=== PATIENT | female | born 1940 | race Caucasian/White ===

== ENCOUNTER 2017-06-24 15:06 | Emergency (ER) | payer MEDICARE, BC ==
[2017-06-24] MEDS ORDERED: Ondansetron HCl/PF 4 MG/2 ML Vial ONE (15:55)
[2017-06-24 16:00] LABS: #Basophils 0.1 thou/uL (0.0-0.2); #Lymphocytes 0.8 thou/uL (1.20-3.40); #Monocytes 0.4 thou/uL (0.11-0.59); #Neutrophils 4.1 thou/uL (1.40-6.50); %Basophils 1.1 % (0.0-1.0); %Eosinophils 0.4 % (0.0-10.0); %Lymphocytes 15.4 % (21.0-51.0); Hematocrit 44.5 % (36.0-47.0); Red Blood Cell (RBC) Count 4.95 mill/uL (4.20-5.40); White Blood Cell (WBC) Count 5.3 thou/uL (4.8-10.8)
[2017-06-24 16:18] LABS: ALT (SGPT) 16 U/L (8-55); AST (SGOT) 18 U/L (5-34); Alkaline Phosphatase 122 U/L (40-150); Anion Gap 16 mmol/L (10-20); BUN (Urea Nitrogen) 9 mg/dL (9.8-20.1); Bilirubin, Total 0.4 mg/dL (0.2-1.2); CK (CPK) 26 U/L (29-168); Calc. Creatinine Clearance 0 mL/min (70-130); Calcium 9.8 mg/dL (7.8-10.44); Carbon Dioxide 28 mmol/L (23-31); Chloride 97 mmol/L (98-107); Estimated GFR-MDRD 63; Globulin 3.4 g/dL (2.4-3.5); Lipase 39 U/L (8-78); Magnesium 1.9 mg/dL (1.6-2.6); Protein, Total 7.4 g/dL (6.0-8.3); Troponin I Less than 0.010 ng/mL (< 0.028)
[2017-06-24 17:29] LABS: Bilirubin Negative (Negative); Blood, Urine Negative (Negative); Glucose, Urine (Dipstick) Negative (Negative); Ketone, Urine Negative (Negative); Nitrite Negative (Negative); Protein, Urine (Dipstick) Negative (Neg-Trace); Urobilinogen 0.2 mg/dL (0.2-1.0)
--- NOTE | 2017-06-24 17:54 | RAD ---
CHEST TWO VIEWS 06/24/17 HISTORY: Weakness. FINDINGS: The cardiac silhouette is upper limits of normal in size. Pulmonary vasculature is unremarkable. Calc ified granulomata are consistent with healed granulomatous disease. Nipple shadows overlie each lung base. Lungs are hyperinflated. There is compression of a lower thoracic vertebral body in the latera l view. Small hiatal hernia is visualized. IMPRESSION: 1. COPD. 2. Atherosclerosis. 3. Partial compression of a lower thoracic vertebral body, age indeterminate. POS: [facility]
--- NOTE | 2017-07-28 12:49 | EKG ---
Test Reason : Blood Pressure : / mmHG Vent. Rate : 072 BPM Atrial Rate : 072 BPM P-R Int : 138 ms QRS Dur : 068 ms QT Int : 398 ms P-R-T Axes : 059 -08 011 degrees QTc Int : 435 ms Normal sinus rhythm Nonspecific ST and T wave abnormality Nospecific ST-T segment abnormalities Abnormal ECG Confirmed by YOGI GIBSON ([id number]), graphic editor SANDRA GONZALES ([id number]) on 07/28/2017 12:48:51 PM Referred By: Confirmed By:YOGI GIBSON
== END 2017-06-24 18:24 | disposition home or self-care (01) ==
LOC: SCSER 15:06
DX: R11.2 Nausea with vomiting, unspecified (principal); R19.7 Diarrhea, unspecified; F41.9 Anxiety disorder, unspecified; F17.290 Nicotine dependence, other tobacco product, uncomplicated; Z79.899 Other long term (current) drug therapy
CPT/HCPCS: 71020; 80053; 81003; 82550; 82553; 83605; 83690; 83735; 84484; 85025; 87086; 93005; 96361; 96374; J2405

== ENCOUNTER 2020-09-30 08:11 | Outpatient (CLI) | payer MEDICARE, BC | END 2020-09-30 08:12 | disposition home or self-care (01) | LOC: PET 08:11 | PROVIDERS: ATTEND Psychiatry & Neurology Neurology | DX: F02.80 Dementia in other diseases classified elsewhere, unspecified severity, without behavioral disturbance, psychotic disturbance, mood disturbance, and anxiety (principal) | CPT/HCPCS: 78803; A9552 ==

== ENCOUNTER 2023-02-19 19:21 | Observation (INO) | payer MEDICARE, BC ==
[2023-02-19] MEDS ORDERED: Nitroglycerin 0.4 MG TAB 1 EACH ONE (19:56)
[2023-02-19 20:34] LABS: #Basophils 0.1 thou/uL (0.0-0.2); #Eosinphils 0.1 thou/uL (0.0-0.7); #Monocytes 0.4 thou/uL (0.11-0.59); #Neutrophils 3.2 thou/uL (1.40-6.50); %Basophils 1.4 % (0.0-1.0); %Eosinophils 1.8 % (0.0-10.0); %Lymphocytes 25.7 % (21.0-51.0); %Monocytes 8.5 % (0.0-10.0); %Neutrophils 62.4 % (42.0-75.0); Hemoglobin 12.7 g/dL (12.0-16.0); Mean Corpuscular Hemoglobin 29.1 pg (27.0-31.0); Mean Corpuscular Volume 91.1 fl (78.0-98.0); Mean Platelet Volume 9.2 fL (7.4-10.4); Platelet Count 189 10x3/uL (130-400); RBC Distribution Width 13.1 % (11.5-14.5); Red Blood Cell (RBC) Count 4.36 mill/uL (4.20-5.40); White Blood Cell (WBC) Count 5.1 10x3/uL (4.8-10.8)
[2023-02-19 21:04] LABS: ALT (SGPT) 11 U/L (8-55); AST (SGOT) 15 U/L (5-34); Albumin 3.4 g/dL (3.4-4.8); Alkaline Phosphatase 68 U/L (40-110); Anion Gap 11 mmol/L (10-20); BUN (Urea Nitrogen) 13 mg/dL (9.8-20.1); Bilirubin, Total 0.2 mg/dL (0.2-1.2); Calc. Creatinine Clearance 0 mL/min (70-130); Calcium 8.8 mg/dL (7.8-10.44); Carbon Dioxide 28 mmol/L (23-31); Chloride 106 mmol/L (98-107); Estimated GFR 52; Globulin 2.1 g/dL (2.4-3.5); Glucose 117 mg/dL (83-110); Lipase 61 U/L (8-78); Potassium 3.9 mmol/L (3.5-5.1); Protein, Total 5.5 g/dL (5.8-8.1); Sodium 141 mmol/L (136-145)
[2023-02-19] MEDS ORDERED: Nitroglycerin 0.4 MG TAB (25 Tab Bottle) SL PRN (23:59)
[2023-02-19] MEDS ORDERED: Ondansetron PF 4 MG/2 ML Vial IVP PRN (23:59)
[2023-02-19] MEDS ORDERED: Acetaminophen 325 MG TAB PO PRN (23:59)
[2023-02-20 00:38] VITALS: BMI 24.0
[2023-02-20 00:39] LABS: Troponin I 0.013 ng/mL (< 0.028)
[2023-02-20 03:21] LABS: Troponin I 0.014 ng/mL (< 0.028)
[2023-02-20 05:51] LABS: #Basophils 0.1 thou/uL (0.0-0.2); #Eosinphils 0.1 thou/uL (0.0-0.7); #Monocytes 0.4 thou/uL (0.11-0.59); #Neutrophils 2.7 thou/uL (1.40-6.50); %Eosinophils 2.9 % (0.0-10.0); %Lymphocytes 32.2 % (21.0-51.0); %Monocytes 7.9 % (0.0-10.0); %Neutrophils 55.8 % (42.0-75.0); Hemoglobin 12.8 g/dL (12.0-16.0); Mean Corpuscular HGB CONC 31.9 g/dL (32.0-36.0); Mean Corpuscular Volume 90.9 fl (78.0-98.0); Mean Platelet Volume 9.6 fL (7.4-10.4); Platelet Count 184 10x3/uL (130-400); Red Blood Cell (RBC) Count 4.41 mill/uL (4.20-5.40); White Blood Cell (WBC) Count 4.9 10x3/uL (4.8-10.8)
[2023-02-20 05:55] LABS: Hemoglobin A1c 5.6 % (4.0-6.0)
[2023-02-20 06:18] LABS: Anion Gap 10 mmol/L (10-20); BUN (Urea Nitrogen) 13 mg/dL (9.8-20.1); Calc. Creatinine Clearance 59 mL/min (70-130); Calcium 8.6 mg/dL (7.8-10.44); Carbon Dioxide 27 mmol/L (23-31); Cardiac Risk 4.1 (Less than 4.5); Chloride 107 mmol/L (98-107); Cholesterol 197 mg/dl (< 200 Desired); Estimated GFR 64; Glucose 90 mg/dL (83-110); HDL Cholesterol 48 mg/dL (>60 Neg Risk); LDL Cholesterol, Calculated 132 mg/dL; Potassium 3.9 mmol/L (3.5-5.1); Sodium 140 mmol/L (136-145); Triglycerides 87 mg/dL (Less than 150)
[2023-02-20] MEDS ORDERED: ADENOSINE 60 MG/20 ML SDV ONE (11:01)
[2023-02-20 14:51] VITALS: BP 162/78; TEMP 97.5
== END 2023-02-20 17:55 | disposition home or self-care (01) ==
LOC: ERS 19:21 → 2SW 21:36
PROVIDERS: ADMIT Internal Medicine; ATTEND Hospitalist
DX: E78.5 Hyperlipidemia, unspecified (principal); R07.9 Chest pain, unspecified; Z88.2 Allergy status to sulfonamides; Z87.891 Personal history of nicotine dependence; Z90.710 Acquired absence of both cervix and uterus
CPT/HCPCS: 71045; 78452; 80048; 80053; 80061; 82962; 83036; 83690; 83880; 84484 ×2; 85025 ×2; 85379; 93005; 93017; 94760; 99285; A9500; G0378 ×3; 36415; 36416; J0153